=== PATIENT | male | born 1960 | race Caucasian/White ===

== ENCOUNTER 2017-10-23 06:07 | Emergency (ER) | payer MEDICAID, OTHER ==
[~2017-10-23] VITALS: Ht 182.9 cm; Wt 77.3 kg
[~2017-10-23 06:07] MED LIST: CEPH-268 PO; NO HOME MEDS
[2017-10-23] MEDS ORDERED: ketorolac trometh inj. 60 MG/2 ML VIAL IM ONE (06:45)
[2017-10-23 12:21] VITALS: BP 158/95
== END 2017-10-23 12:23 | disposition home or self-care (01) ==
LOC: ER 06:08
DX: S32.010A Wedge compression fracture of first lumbar vertebra, initial encounter for closed fracture (principal); I10 Essential (primary) hypertension; G62.9 Polyneuropathy, unspecified; F10.129 Alcohol abuse with intoxication, unspecified; Z89.512 Acquired absence of left leg below knee; Z99.3 Dependence on wheelchair; Z88.1 Allergy status to other antibiotic agents; W05.0XXA Fall from non-moving wheelchair, initial encounter; Y93.89 Activity, other specified; Y92.89 Other specified places as the place of occurrence of the external cause; Y99.8 Other external cause status
CPT/HCPCS: 72100; 72131; 99284; J1885

== ENCOUNTER 2018-06-16 18:16 | Emergency (ER) | payer MEDICAID, OTHER ==
[~2018-06-16] VITALS: Ht 182.9 cm; Wt 79.5 kg
[2018-06-16] MEDS ORDERED: normal saline 1000ML IV soln IVB ONE (19:30)
[2018-06-16 19:31] LABS: BASOPHILS # (AUTO) 0.1 X10'3 (0-0.2); BASOPHILS % (AUTO) 1.1 % (0-1); EOSINOPHILS # (AUTO) 0.1 X10'3 (0-0.9); EOSINOPHILS % (AUTO) 1.6 % (0-6); HEMATOCRIT 41.8 % (42.0-52.0); LYMPHOCYTES # (AUTO) 0.7 X10'3 (1.1-4.8); LYMPHOCYTES % (AUTO) 13.1 % (21-51); MEAN CORPUSCULAR HGB CONC 33.4 % (33.0-36.5); MEAN CORPUSCULAR VOLUME 98.8 FL (78-98); MEAN PLATELET VOLUME 6.6 FL (7.4-10.4); MONOCYTES # (AUTO) 0.8 X10'3 (0-0.9); NEUTROPHILS # (AUTO) 3.7 X10'3 (1.8-7.7); NEUTROPHILS % (AUTO) 69.2 % (42-75); PLATELET COUNT 154 X10'3 (140-440); RED BLOOD COUNT 4.23 X10'6 (4.70-6.10); WHITE BLOOD COUNT 5.4 X10'3 (4.5-11.0)
[2018-06-16 19:47] LABS: ALANINE AMINOTRANSFERASE 38 U/L (12-78); ALBUMIN 3.2 G/DL (3.4-5.0); ALBUMIN/GLOBULIN RATIO 0.8 (1.1-1.5); ALKALINE PHOSPHATASE 106 IU/L (46-116); ANION GAP 11 (8-16); ASPARTATE AMINO TRANSFERASE 52 U/L (10-37); BLOOD UREA NITROGEN 3 MG/DL (7-18); CALCIUM 8.6 MG/DL (8.5-10.1); CHLORIDE 92 MMOL/L (99-107); GLUCOSE 98 MG/DL (70-104); MAGNESIUM 1.6 MG/DL (1.5-2.4); POTASSIUM 3.5 MMOL/L (3.5-5.1); SODIUM 128 MMOL/L (135-145); TOTAL CARBON DIOXIDE 24.7 MMOL/L (24-32)
[2018-06-16 19:49] LABS: CLARITY,URINE CLOUDY (Clear); COLOR,URINE YELLOW (Yellow); GLUCOSE, URINE NEGATIVE (Neg); KETONES,URINE NEGATIVE (Neg); LEUKOCYTE ESTERASE ,URINE LARGE (Neg); NITRITES, URINE NEGATIVE (Neg); OCCULT BLOOD,URINE MODERATE (Neg); PROTEIN,URINE NEGATIVE (Neg); UROBILINOGEN,URINE 0.2 E.U/dL (0.2-1.0)
[2018-06-16 19:52] LABS: INR 1.1 INR; PARTIAL THROMBOPLASTIN TIME 30 SECONDS (22-32); PROTHROMBIN TIME 11.4 SECONDS (9.0-12.0)
[2018-06-16 19:57] LABS: UA COLLECTION TYPE CLN CATCH MIDSTREAM
[2018-06-16 19:58] LABS: BACTERIA,URINE FEW /HPF (Neg); RBC,URINE 20-50 /HPF (0-2); SQUAMOUS EPITHELIAL CELL,UR FEW /LPF (FEW); WBC CLUMPS,URINE FEW /HPF (NEGATIVE); WBC,URINE TNTC /HPF (0-4)
[2018-06-16 19:59] LABS: BUN/CREATININE RATIO 3.3 (5.4-32.0); CREATININE 0.92 MG/DL (0.60-1.10); eGFR 84 ML/MIN
[2018-06-16] MEDS ORDERED: CIPR-259 PO (21:45)
[2018-06-16] MEDS ORDERED: MYCOL30CR TP (21:45)
[2018-06-16 22:05] VITALS: BP 147/89
== END 2018-06-16 22:18 | disposition home or self-care (01) ==
LOC: ER 18:17
DX: B37.2 Candidiasis of skin and nail (principal); R21 Rash and other nonspecific skin eruption; N39.0 Urinary tract infection, site not specified; G62.9 Polyneuropathy, unspecified; I10 Essential (primary) hypertension; Z86.73 Personal history of transient ischemic attack (TIA), and cerebral infarction without residual deficits; Z98.890 Other specified postprocedural states; Z88.1 Allergy status to other antibiotic agents
CPT/HCPCS: 36415; 71045; 80053; 81001; 83735; 84145; 85025; 85610; 85730; 87040; 87088; 93005; 99285; J7030

== ENCOUNTER 2021-07-26 03:53 | Inpatient (IN) | payer MEDICAID ==
[~2021-07-26] VITALS: Ht 182.9 cm; Wt 59.7 kg
[~2021-07-26 03:53] MED LIST changes: +MYCOL30CR TP
[2021-07-26] MEDS ORDERED: normal saline 1000ml 1,000 ML IV ONE (05:35)
[2021-07-26 05:43] LABS: BASOPHILS # (AUTO) 0.1 X10'3 (0-0.2); BASOPHILS % (AUTO) 1.2 % (0-1); EOSINOPHILS # (AUTO) 0.1 X10'3 (0-0.9); EOSINOPHILS % (AUTO) 1.2 % (0-6); HEMATOCRIT 39.3 % (42.0-52.0); HEMOGLOBIN 13.5 g/dl (14.0-17.9); LYMPHOCYTES # (AUTO) 0.8 X10'3 (1.1-4.8); LYMPHOCYTES % (AUTO) 12.1 % (21-51); MEAN CORPUSCULAR HEMOGLOBIN 32.1 PG (27.0-31.0); MEAN CORPUSCULAR HGB CONC 34.4 g/dL (33.0-36.5); MEAN CORPUSCULAR VOLUME 93.4 FL (78-98); MEAN PLATELET VOLUME 7.1 FL (7.4-10.4); MONOCYTES # (AUTO) 0.6 X10'3 (0-0.9); NEUTROPHILS # (AUTO) 4.9 X10'3 (1.8-7.7); NEUTROPHILS % (AUTO) 75.5 % (42-75); PLATELET COUNT 416 X10'3 (140-440); RED CELL DISTRIBUTION WIDTH 12.9 % (11.5-14.5); WHITE BLOOD COUNT 6.4 X10'3 (4.5-11.0)
[2021-07-26] MEDS ORDERED: DOXYCYCLINE 100MG CAPSULE PO STA (05:51)
[2021-07-26] MEDS ORDERED: DOXY-1 PO (05:53)
[2021-07-26 06:02] LABS: ALANINE AMINOTRANSFERASE 25 U/L (12-78); ALBUMIN 3.5 G/DL (3.4-5.0); ALBUMIN/GLOBULIN RATIO 0.7 (1.1-1.5); ALKALINE PHOSPHATASE 188 IU/L (46-116); ANION GAP 12 (8-16); BILIRUBIN,TOTAL 0.4 MG/DL (0.1-1.0); BLOOD UREA NITROGEN 20 MG/DL (7-18); BUN/CREATININE RATIO 10.4 (5.4-32.0); CALCIUM 9.8 MG/DL (8.5-10.1); CHLORIDE 90 MMOL/L (99-107); CREATININE 1.92 MG/DL (0.60-1.10); GLUCOSE 134 MG/DL (70-104); SODIUM 121 MMOL/L (135-145); TOTAL CARBON DIOXIDE 19.2 MMOL/L (24-32); TOTAL PROTEIN 8.6 G/DL (6.4-8.2); eGFR 36 ML/MIN
[2021-07-26 06:20] LABS: ASPARTATE AMINO TRANSFERASE 43 U/L (10-37); POTASSIUM 5.3 MMOL/L (3.5-5.1)
[2021-07-26] MEDS ORDERED: LORazepam 1 MG tablet PO ONE (06:20)
[2021-07-26] MEDS ORDERED: magnesium hydroxide 30ml (MOM) UD suspension PO PRN (07:25)
[2021-07-26] MEDS: normal saline 1000ml 1,000 ML IV SCH (07:25)
[2021-07-26] MEDS ORDERED: haloperidol lactate 5mg/ml inj IM PRN (07:25)
[2021-07-26] MEDS ORDERED: haloperidol 5mg tablet PO PRN (07:25)
[2021-07-26] MEDS ORDERED: mag hydrox/Alum hydrox/simeth 30ml oral suspension PO PRN (07:25)
[2021-07-26] MEDS ORDERED: thiamine 100mg/ml 2ml inj. IV ONE ×2 (07:25→07:30)
[2021-07-26] MEDS ORDERED: dextrose 50%-water 50ml dispensing syringe IV PRN (07:25)
[2021-07-26] MEDS ORDERED: ondansetron/PF 4mg/2ml inj IV PRN (07:25)
[2021-07-26] MEDS ORDERED: acetaminophen 325mg tablet PO PRN (07:25)
[2021-07-26] MEDS ORDERED: ringers solution, lacted 1,000 ML IV ONE (07:30)
[2021-07-26] MEDS ORDERED: folic acid 1mg/0.2ml inj IV ONE (07:30)
[2021-07-26 07:54] LABS: MAGNESIUM 1.8 MG/DL (1.5-2.4)
[2021-07-26] MEDS: docusate sod 100mg capsule PO SCH ×2 (08:00→20:00)
--- NOTE | 2021-07-26 09:00 | NUR ---
NUMEROUS IV ATTEMPTS BY 3 RN'S. PICC NURSE PAGED.
[2021-07-26] MEDS: thiamine 100mg tablet PO SCH (16:40)
[2021-07-26] MEDS: folic acid 1mg tablet PO SCH (16:40)
[2021-07-26] MEDS: enoxaparin 40mg/0.4ml syringe SUBCUT SCH (16:44)
[2021-07-26] MEDS: LORazepam 2 mg/ml vial IV PRN (18:17)
[2021-07-27] MEDS: normal saline 1000ml 1,000 ML IV SCH ×4 (01:00→23:25)
--- NOTE | 2021-07-27 01:00 | NUR ---
Report received from Tisha RN in ER. Tisha could not tell me why this pt was being admitted; Pt AO to self but very confused. NA of 121. Pt has LR infusing with 10mL left; switched to NS per order. Pt in NAD with VSS. Placed pt on monitor and will CTM and reassess.
--- NOTE | 2021-07-27 02:08 | NUR ---
Report given to Edita CARRION. Pt in NAD with VSS upon transfer to floor. Pt belongings placed on bed with patient. Pt has a prosthesis with him for his leg and several patient belongings bags.
[2021-07-27 07:58] LABS: BASOPHILS # (AUTO) 0.1 X10'3 (0-0.2); EOSINOPHILS % (AUTO) 0.4 % (0-6); HEMATOCRIT 37.8 % (42.0-52.0); HEMOGLOBIN 12.9 g/dl (14.0-17.9); LYMPHOCYTES # (AUTO) 0.3 X10'3 (1.1-4.8); LYMPHOCYTES % (AUTO) 3.3 % (21-51); MEAN CORPUSCULAR HEMOGLOBIN 31.8 PG (27.0-31.0); MEAN CORPUSCULAR VOLUME 93.6 FL (78-98); MEAN PLATELET VOLUME 6.2 FL (7.4-10.4); MONOCYTES # (AUTO) 0.7 X10'3 (0-0.9); NEUTROPHILS # (AUTO) 7.1 X10'3 (1.8-7.7); NEUTROPHILS % (AUTO) 87.3 % (42-75); PLATELET COUNT 291 X10'3 (140-440); RED BLOOD COUNT 4.04 X10'6 (4.70-6.10); RED CELL DISTRIBUTION WIDTH 12.8 % (11.5-14.5); WHITE BLOOD COUNT 8.2 X10'3 (4.5-11.0)
[2021-07-27 08:06] LABS: ALBUMIN 3.2 G/DL (3.4-5.0); ANION GAP 13 (8-16); BLOOD UREA NITROGEN 20 MG/DL (7-18); BUN/CREATININE RATIO 13.8 (5.4-32.0); CALCIUM 9.7 MG/DL (8.5-10.1); CHLORIDE 96 MMOL/L (99-107); CREATININE 1.45 MG/DL (0.60-1.10); GLUCOSE 120 MG/DL (70-104); POTASSIUM 5.2 MMOL/L (3.5-5.1); SODIUM 127 MMOL/L (135-145); TOTAL CARBON DIOXIDE 17.8 MMOL/L (24-32); eGFR 49 ML/MIN
--- NOTE | 2021-07-27 08:58 | NUR ---
Patient in room ED 13. I have received report from Oriana infante and had the opportunity to ask questions and assume patient care. pt morning meds were not given in ED, will give when pt comes to the floor
[2021-07-27] MEDS: thiamine 100mg tablet PO SCH (09:46)
[2021-07-27] MEDS: folic acid 1mg tablet PO SCH (09:46)
[2021-07-27] MEDS: docusate sod 100mg capsule PO SCH ×2 (09:47→22:41)
[2021-07-27] MEDS: enoxaparin 40mg/0.4ml syringe SUBCUT SCH (09:47)
[2021-07-27 10:01] VITALS: BP 119/80
[2021-07-27 11:00] VITALS: BP 108/81
[2021-07-27] MEDS: LORazepam 2 mg/ml vial IV PRN ×2 (12:19→17:16)
[2021-07-27 15:00] VITALS: BP 107/72
[2021-07-27 18:00] VITALS: BP 128/60
--- NOTE | 2021-07-27 18:20 | NUR ---
Problems reprioritized. Patient report given, questions answered & plan of care reviewed with Alonzo infante.
[2021-07-28 02:00] VITALS: BP 109/72
[2021-07-28 06:00] VITALS: BP 116/62
--- NOTE | 2021-07-28 06:00 | NUR ---
Patient in room PCU 3015. I have received report from Alonzo Bhagat and had the opportunity to ask questions and assume patient care
[2021-07-28 07:08] LABS: HEMOGLOBIN 11.8 g/dl (14.0-17.9); LYMPHOCYTES # (AUTO) 0.4 X10'3 (1.1-4.8); LYMPHOCYTES % (AUTO) 8.4 % (21-51); MEAN CORPUSCULAR HGB CONC 34.1 g/dL (33.0-36.5); MONOCYTES # (AUTO) 0.9 X10'3 (0-0.9); WHITE BLOOD COUNT 4.2 X10'3 (4.5-11.0)
[2021-07-28 07:11] LABS: EOSINOPHILS % (AUTO) 1.1 % (0-6); HEMATOCRIT 34.5 % (42.0-52.0); MEAN CORPUSCULAR HEMOGLOBIN 32.1 PG (27.0-31.0); MEAN CORPUSCULAR VOLUME 93.9 FL (78-98); MEAN PLATELET VOLUME 6.7 FL (7.4-10.4); MONOCYTES % (AUTO) 21.1 % (2-12); NEUTROPHILS # (AUTO) 2.9 X10'3 (1.8-7.7); NEUTROPHILS % (AUTO) 68.4 % (42-75); PLATELET COUNT 243 X10'3 (140-440); RED BLOOD COUNT 3.67 X10'6 (4.70-6.10); RED CELL DISTRIBUTION WIDTH 12.8 % (11.5-14.5)
[2021-07-28 07:17] LABS: ALBUMIN 2.8 G/DL (3.4-5.0); ANION GAP 10 (8-16); BLOOD UREA NITROGEN 20 MG/DL (7-18); BUN/CREATININE RATIO 13.9 (5.4-32.0); CALCIUM 9.3 MG/DL (8.5-10.1); CHLORIDE 97 MMOL/L (99-107); CREATININE 1.44 MG/DL (0.60-1.10); GLUCOSE 110 MG/DL (70-104); SODIUM 123 MMOL/L (135-145); TOTAL CARBON DIOXIDE 15.8 MMOL/L (24-32); eGFR 50 ML/MIN
[2021-07-28] MEDS ORDERED: LORazepam 2 mg/ml vial IV PRN (07:25)
[2021-07-28 08:16] LABS: PLATELET ESTIMATE NORMAL; TOTAL CELLS COUNTED 100
[2021-07-28] MEDS: LORazepam 1 MG tablet PO PRN ×4 (08:44→23:26)
[2021-07-28] MEDS: thiamine 100mg tablet PO SCH (08:44)
[2021-07-28] MEDS: enoxaparin 40mg/0.4ml syringe SUBCUT SCH (08:45)
[2021-07-28] MEDS: docusate sod 100mg capsule PO SCH ×2 (08:45→20:21)
[2021-07-28] MEDS: folic acid 1mg tablet PO SCH (08:45)
[2021-07-28] MEDS: normal saline 1000ml 1,000 ML IV SCH (08:46)
[2021-07-28] MEDS: sodium bicarbonate (8.4%) inj. 100 MEQ in dextrose 5%-water 1,000 ML IV SCH ×3 (10:54→23:26)
[2021-07-28 11:30] VITALS: BP 104/70
--- NOTE | 2021-07-28 12:25 | NUR ---
Informed MD Manzo of Amos aarm edema, IV dc'd infiltrated and dc'd, orders recevied to check venous US
[2021-07-28 15:00] VITALS: BP 105/74
[2021-07-28 18:00] VITALS: BP 136/74
--- NOTE | 2021-07-28 19:00 | NUR ---
I have received report from MURALI Pritchett and had the opportunity to ask questions and assume patient care.
[2021-07-28 23:34] VITALS: BP 97/50
[2021-07-29 03:13] VITALS: BP 117/67
[2021-07-29] MEDS: LORazepam 1 MG tablet PO PRN (04:43)
--- NOTE | 2021-07-29 06:17 | NUR ---
Problems reprioritized. Patient report given, questions answered & plan of care reviewed with MURALI Alcazar.
[2021-07-29 07:11] VITALS: BP 92/32
--- NOTE | 2021-07-29 07:21 | NUR ---
Patient in room PCU 3017. I have received report from Juancho CARRION and had the opportunity to ask questions and assume patient care.
[2021-07-29] MEDS: thiamine 100mg tablet PO SCH (07:53)
[2021-07-29] MEDS: folic acid 1mg tablet PO SCH (07:53)
[2021-07-29] MEDS: docusate sod 100mg capsule PO SCH ×2 (07:53→20:50)
[2021-07-29] MEDS: enoxaparin 40mg/0.4ml syringe SUBCUT SCH (07:54)
[2021-07-29 12:13] LABS: BASOPHILS % (AUTO) 0.6 % (0-1); EOSINOPHILS # (AUTO) 0.1 X10'3 (0-0.9); EOSINOPHILS % (AUTO) 1.3 % (0-6); HEMATOCRIT 32.2 % (42.0-52.0); HEMOGLOBIN 10.9 g/dl (14.0-17.9); LYMPHOCYTES # (AUTO) 0.4 X10'3 (1.1-4.8); LYMPHOCYTES % (AUTO) 7.5 % (21-51); MEAN CORPUSCULAR HEMOGLOBIN 31.5 PG (27.0-31.0); MEAN CORPUSCULAR HGB CONC 33.8 g/dL (33.0-36.5); MEAN CORPUSCULAR VOLUME 93.3 FL (78-98); MEAN PLATELET VOLUME 6.3 FL (7.4-10.4); MONOCYTES # (AUTO) 0.8 X10'3 (0-0.9); MONOCYTES % (AUTO) 12.8 % (2-12); NEUTROPHILS # (AUTO) 4.6 X10'3 (1.8-7.7); NEUTROPHILS % (AUTO) 77.8 % (42-75); PLATELET COUNT 265 X10'3 (140-440); RED BLOOD COUNT 3.45 X10'6 (4.70-6.10); RED CELL DISTRIBUTION WIDTH 12.9 % (11.5-14.5); WHITE BLOOD COUNT 5.9 X10'3 (4.5-11.0)
[2021-07-29 12:28] LABS: ALBUMIN 2.4 G/DL (3.4-5.0); ANION GAP 9 (8-16); BLOOD UREA NITROGEN 16 MG/DL (7-18); BUN/CREATININE RATIO 12.8 (5.4-32.0); CALCIUM 8.2 MG/DL (8.5-10.1); CHLORIDE 96 MMOL/L (99-107); CREATININE 1.25 MG/DL (0.60-1.10); GLUCOSE 124 MG/DL (70-104); POTASSIUM 4.2 MMOL/L (3.5-5.1); SODIUM 129 MMOL/L (135-145); TOTAL CARBON DIOXIDE 23.8 MMOL/L (24-32); eGFR 58 ML/MIN
[2021-07-29 13:17] VITALS: BP 104/74
[2021-07-29] MEDS: dextrose 5%-water 1,000 ML IV SCH (14:27)
--- NOTE | 2021-07-29 18:36 | NUR ---
Problems reprioritized. Patient report given, questions answered & plan of care reviewed with Rachel CARRION.
[2021-07-29 22:00] VITALS: BP 119/72
--- NOTE | 2021-07-30 06:33 | NUR ---
Patient in room PCU 3017. I have received report from Ayesha CARRION and had the opportunity to ask questions and assume patient care.
--- NOTE | 2021-07-30 07:09 | NUR ---
Patient in room PCU 3017. I have received report from Jenny CARRION and had the opportunity to ask questions and assume patient care.
[2021-07-30 07:17] VITALS: BP 102/68
[2021-07-30] MEDS ORDERED: LORazepam 2 mg/ml vial IV PRN (07:25)
[2021-07-30] MEDS ORDERED: LORazepam 1 MG tablet PO PRN (07:25)
[2021-07-30 07:29] LABS: BASOPHILS % (AUTO) 0.5 % (0-1); EOSINOPHILS # (AUTO) 0.1 X10'3 (0-0.9); EOSINOPHILS % (AUTO) 1.6 % (0-6); HEMATOCRIT 29.4 % (42.0-52.0); HEMOGLOBIN 10.4 g/dl (14.0-17.9); LYMPHOCYTES # (AUTO) 0.4 X10'3 (1.1-4.8); LYMPHOCYTES % (AUTO) 7.1 % (21-51); MEAN CORPUSCULAR HEMOGLOBIN 32.1 PG (27.0-31.0); MEAN CORPUSCULAR HGB CONC 35.5 g/dL (33.0-36.5); MEAN CORPUSCULAR VOLUME 90.5 FL (78-98); MEAN PLATELET VOLUME 6.6 FL (7.4-10.4); MONOCYTES # (AUTO) 0.8 X10'3 (0-0.9); NEUTROPHILS # (AUTO) 4.9 X10'3 (1.8-7.7); NEUTROPHILS % (AUTO) 77.8 % (42-75); PLATELET COUNT 241 X10'3 (140-440); RED BLOOD COUNT 3.25 X10'6 (4.70-6.10); RED CELL DISTRIBUTION WIDTH 12.6 % (11.5-14.5); WHITE BLOOD COUNT 6.3 X10'3 (4.5-11.0)
[2021-07-30 07:38] LABS: ALBUMIN 2.2 G/DL (3.4-5.0); ANION GAP 9 (8-16); BLOOD UREA NITROGEN 12 MG/DL (7-18); BUN/CREATININE RATIO 11.8 (5.4-32.0); CALCIUM 8.1 MG/DL (8.5-10.1); CHLORIDE 98 MMOL/L (99-107); CREATININE 1.02 MG/DL (0.60-1.10); GLUCOSE 108 MG/DL (70-104); POTASSIUM 3.3 MMOL/L (3.5-5.1); SODIUM 129 MMOL/L (135-145); TOTAL CARBON DIOXIDE 22.1 MMOL/L (24-32); eGFR 74 ML/MIN
[2021-07-30] MEDS: thiamine 100mg tablet PO SCH (08:17)
[2021-07-30] MEDS: enoxaparin 40mg/0.4ml syringe SUBCUT SCH (08:17)
[2021-07-30] MEDS: docusate sod 100mg capsule PO SCH ×2 (08:17→22:32)
[2021-07-30] MEDS: folic acid 1mg tablet PO SCH (08:18)
[2021-07-30] MEDS ORDERED: magnesium 4gm in 100ml NS 100 ML IV PRN (08:55)
[2021-07-30] MEDS ORDERED: magnesium Cl slow-release 64mg tablet PO PRN (08:55)
[2021-07-30] MEDS ORDERED: potassium Cl 40MEQ/1/2NS 520ml 520 ML IV PRN (08:55)
[2021-07-30] MEDS ORDERED: potassium Cl 20 mEq SR tablet PO PRN (08:55)
[2021-07-30] MEDS: potassium Cl 20 mEq SR tablet PO PRN ×2 (09:48→14:20)
[2021-07-30 11:00] VITALS: BP 101/70
[2021-07-30 15:00] VITALS: BP 115/82
[2021-07-30] MEDS: dextrose 5%-water 1,000 ML IV SCH ×3 (15:27→19:30)
--- NOTE | 2021-07-30 15:31 | NUR ---
MESSAGE: Pt D[place] Carney [id number] is requesting throat lozengesPls advise, Thanks, [id number]
[2021-07-30] MEDS ORDERED: benzocaine/menthol oral lozeng 1 EACH BOX MM PRN (15:35)
--- NOTE | 2021-07-30 18:55 | NUR ---
Problems reprioritized. Patient report given to Cris CARRION , questions answered & plan of care reviewed with .
[2021-07-30] MEDS: K and/or MAG REPLACEMENT MC SCH (20:00)
[2021-07-31] MEDS: dextrose 5%-water 1,000 ML IV SCH (05:30)
--- NOTE | 2021-07-31 06:30 | NUR ---
Patient alert and oriented times three. IVF in progress. Call light with reach. Safety precaution in place and maintained. Denies any pain/acute distress.
[2021-07-31 06:46] LABS: BASOPHILS % (AUTO) 0.8 % (0-1); EOSINOPHILS # (AUTO) 0.1 X10'3 (0-0.9); EOSINOPHILS % (AUTO) 1.6 % (0-6); HEMATOCRIT 28.2 % (42.0-52.0); HEMOGLOBIN 9.9 g/dl (14.0-17.9); LYMPHOCYTES # (AUTO) 0.7 X10'3 (1.1-4.8); LYMPHOCYTES % (AUTO) 11.3 % (21-51); MEAN CORPUSCULAR HEMOGLOBIN 32.1 PG (27.0-31.0); MEAN CORPUSCULAR HGB CONC 35.2 g/dL (33.0-36.5); MEAN CORPUSCULAR VOLUME 91.2 FL (78-98); MEAN PLATELET VOLUME 6.5 FL (7.4-10.4); MONOCYTES # (AUTO) 0.9 X10'3 (0-0.9); MONOCYTES % (AUTO) 15.1 % (2-12); NEUTROPHILS # (AUTO) 4.1 X10'3 (1.8-7.7); NEUTROPHILS % (AUTO) 71.2 % (42-75); PLATELET COUNT 243 X10'3 (140-440); RED BLOOD COUNT 3.09 X10'6 (4.70-6.10); RED CELL DISTRIBUTION WIDTH 13.1 % (11.5-14.5); WHITE BLOOD COUNT 5.8 X10'3 (4.5-11.0)
[2021-07-31 07:00] VITALS: BP 87/63
--- NOTE | 2021-07-31 07:06 | NUR ---
Patient in room PCU 3017. I have received report from Cris CARRION and had the opportunity to ask questions and assume patient care. Pt alert to voice, supine in bed, watching tv. no s/sx acute distress. safety measures in place.
[2021-07-31 07:16] LABS: ANION GAP 8 (8-16); BLOOD UREA NITROGEN 9 MG/DL (7-18); BUN/CREATININE RATIO 9.3 (5.4-32.0); CALCIUM 8.1 MG/DL (8.5-10.1); CHLORIDE 99 MMOL/L (99-107); CREATININE 0.97 MG/DL (0.60-1.10); GLUCOSE 119 MG/DL (70-104); POTASSIUM 3.5 MMOL/L (3.5-5.1); SODIUM 129 MMOL/L (135-145); TOTAL CARBON DIOXIDE 22.4 MMOL/L (24-32); eGFR 78 ML/MIN
--- NOTE | 2021-07-31 07:18 | NUR ---
Problems reprioritized. Patient report given, questions answered & plan of care reviewed with in nurse.
[2021-07-31] MEDS: K and/or MAG REPLACEMENT MC SCH ×2 (08:00→20:00)
[2021-07-31] MEDS: docusate sod 100mg capsule PO SCH ×2 (09:29→20:00)
[2021-07-31] MEDS: folic acid 1mg tablet PO SCH (09:30)
[2021-07-31] MEDS: thiamine 100mg tablet PO SCH (09:30)
[2021-07-31] MEDS: enoxaparin 40mg/0.4ml syringe SUBCUT SCH (09:31)
[2021-07-31 11:00] VITALS: BP 103/69
--- NOTE | 2021-07-31 11:46 | NUR ---
Initial: Pt admit DX hyponatremia, etoh abuse, [place], [place], and metabolic acidosis currently improving per DO note. Serum Na 129 up from 121 on admit however has remained at 129 past 3 days receiving D5 at 100ml/hr (408kcals/day) since 07/29 changed from prior NS per EMR. RD d/w RN who reports D5 stopped this AM. Pt PO mostly ~50% avg meals past 3 days down from 75% on admit partially meeting needs w/ initial tremors improving per EMR. RN reports pt would likely benefit from adaptive wear w/ meals; dietary notified. On thiamin and folic acid for etoh. Noted LBM 07/25 receiving routine colace; RD d/w RN regarding additional bowel care if DO agreeable. Constipation likely impacting PO trends though RD recommends Ensure High protein BIDBD to assist in optimizing nutrition intake; MD notified. Current BMI 17.9 however initial wt 81kg and new wt 59.7kg both not scaled; estimated needs using IBW until wt accuracy ensured. Will continue to monitor for PO trends and additional protein/kcal needs this admit. Rec: 1. continue regular diet; encourage PO; adaptive wear w/ meals given tremors 2. Ensure High Protein BIDBD; pending MD verification in EMR 3. routine bowel care; 6 days constipation 4. thiamin, folic acid for etoh per DO 5. updated scaled wt this admit and weekly subsequent wts; current wts varied 59.7-81kg Addendum: 07/31/21 at [address] Amended: Links added.
[2021-07-31 15:00] VITALS: BP 101/67
[2021-07-31] MEDS: lactose-reduced food (Ensure High Protein) 237ml bottle PO SCH (17:30)
--- NOTE | 2021-07-31 19:01 | NUR ---
Problems reprioritized. Patient report given, questions answered & plan of care reviewed with Cris CARRION. Student documentation: I have reviewed and agree with all interventions, assessments performed and documented by Jasmeet Student RN . Student Medication Administration: For this medication-pass time frame, all medication were reviewed, dispensed, administered and documented per hospital policy by Jasmeet Harris RN .
[2021-07-31] MEDS ORDERED: pneumococcal 23-VAL P-sac vacc 25 mcg/0.5ml vial IMVAC ONE (20:00)
[2021-08-01 07:00] VITALS: BP 101/66
[2021-08-01] MEDS: lactose-reduced food (Ensure High Protein) 237ml bottle PO SCH ×2 (07:30→17:30)
--- NOTE | 2021-08-01 07:34 | NUR ---
Patient in room PCU 3017. I have received report from Cris CARRION and had the opportunity to ask questions and assume patient care.
[2021-08-01] MEDS: K and/or MAG REPLACEMENT MC SCH ×2 (08:00→20:00)
[2021-08-01] MEDS: folic acid 1mg tablet PO SCH (08:51)
[2021-08-01] MEDS: thiamine 100mg tablet PO SCH (08:52)
[2021-08-01] MEDS: enoxaparin 40mg/0.4ml syringe SUBCUT SCH (08:52)
[2021-08-01] MEDS: docusate sod 100mg capsule PO SCH ×2 (08:52→20:00)
[2021-08-01 09:54] LABS: BASOPHILS % (AUTO) 0.8 % (0-1); EOSINOPHILS # (AUTO) 0.1 X10'3 (0-0.9); EOSINOPHILS % (AUTO) 1.7 % (0-6); HEMATOCRIT 29.6 % (42.0-52.0); LYMPHOCYTES # (AUTO) 0.6 X10'3 (1.1-4.8); LYMPHOCYTES % (AUTO) 10.2 % (21-51); MEAN CORPUSCULAR HEMOGLOBIN 31.5 PG (27.0-31.0); MEAN CORPUSCULAR HGB CONC 33.7 g/dL (33.0-36.5); MEAN CORPUSCULAR VOLUME 93.4 FL (78-98); MEAN PLATELET VOLUME 6.3 FL (7.4-10.4); MONOCYTES # (AUTO) 0.7 X10'3 (0-0.9); MONOCYTES % (AUTO) 12.3 % (2-12); NEUTROPHILS # (AUTO) 4.1 X10'3 (1.8-7.7); PLATELET COUNT 246 X10'3 (140-440); RED BLOOD COUNT 3.17 X10'6 (4.70-6.10); RED CELL DISTRIBUTION WIDTH 12.9 % (11.5-14.5); WHITE BLOOD COUNT 5.5 X10'3 (4.5-11.0)
[2021-08-01 10:06] LABS: ANION GAP 9 (8-16); BLOOD UREA NITROGEN 8 MG/DL (7-18); BUN/CREATININE RATIO 8.2 (5.4-32.0); CALCIUM 8.1 MG/DL (8.5-10.1); CHLORIDE 100 MMOL/L (99-107); CREATININE 0.97 MG/DL (0.60-1.10); GLUCOSE 139 MG/DL (70-104); POTASSIUM 3.5 MMOL/L (3.5-5.1); SODIUM 135 MMOL/L (135-145); TOTAL CARBON DIOXIDE 25.6 MMOL/L (24-32); eGFR 78 ML/MIN
[2021-08-01 11:00] VITALS: BP 99/73
[2021-08-01] MEDS ORDERED: pneumococcal 23-VAL P-sac vacc 25 mcg/0.5ml vial IMVAC ONE (14:45)
[2021-08-01 15:00] VITALS: BP 130/83
--- NOTE | 2021-08-01 16:29 | NUR ---
Dr. Rodrigues aware patient has no IV access and is ok with that.
--- NOTE | 2021-08-01 17:41 | NUR ---
Patient refusing PNA vaccine stating he wants think about it more.
--- NOTE | 2021-08-01 17:44 | NUR ---
[place] documentation: I have reviewed and agree with all interventions, assessments performed and documented by Lizzy Butt Medication Administration: For this medication-pass time frame, all medication were reviewed, dispensed, administered and documented per hospital policy by Lizzy CARRION. .
[2021-08-01 18:00] VITALS: BP 104/40
--- NOTE | 2021-08-01 18:05 | NUR ---
Patient in room PCU 3017. I have received report from Bess CARRION and had the opportunity to ask questions and assume patient care.
--- NOTE | 2021-08-01 18:14 | NUR ---
Problems reprioritized. Patient report given, questions answered & plan of care reviewed with Aurelia CARRION.
[2021-08-01 22:00] VITALS: BP 118/54
[2021-08-02 02:00] VITALS: BP 109/55
--- NOTE | 2021-08-02 06:09 | NUR ---
Problems reprioritized. Patient report given, questions answered & plan of care reviewed with Khushi CARRION.
--- NOTE | 2021-08-02 06:42 | NUR ---
Patient in room PCU 3017. I have received report from Aurelia CARRION and had the opportunity to ask questions and assume patient care. Patient resting in bed in no acute distress.
[2021-08-02 07:00] VITALS: BP 103/66
[2021-08-02] MEDS: lactose-reduced food (Ensure High Protein) 237ml bottle PO SCH ×2 (07:30→17:47)
[2021-08-02] MEDS: K and/or MAG REPLACEMENT MC SCH ×3 (08:00→20:06)
[2021-08-02] MEDS: docusate sod 100mg capsule PO SCH ×3 (08:00→20:03)
[2021-08-02] MEDS: thiamine 100mg tablet PO SCH (09:07)
[2021-08-02] MEDS: folic acid 1mg tablet PO SCH (09:07)
[2021-08-02] MEDS: enoxaparin 40mg/0.4ml syringe SUBCUT SCH (09:07)
[2021-08-02 11:00] VITALS: BP 109/75
--- NOTE | 2021-08-02 14:04 | NUR ---
Malnutrition screen: Per [facility]ST pt normally consumes 24-30 beers per day. Pt confirms that he heavily consumes alcohol and that he has not been eating well d/t drinking. Pt states he has lost wt in the last ~6 weeks but is unsure of how much. Pt is able to eat well here though, mostly 100% of meals on Regular diet. Pt observed at bedside w/ visible muscle and fat wasting on temporalis, clavicle, tricep, quadricep, and calf regions. At this time, pt meets minimum criteria for malnutrition. Will continue to monitor. Rec: 1. continue regular diet; encourage PO; adaptive wear w/ meals given tremors 2. Ensure High Protein BIDBD; pt may not need if PO continues to be 100% 3. routine bowel care 4. thiamin, folic acid for etoh per DO 5. Weekly wts Addendum: 08/02/21 at [address] Amended: Links added.
[2021-08-02 15:00] VITALS: BP 113/79
--- NOTE | 2021-08-02 17:46 | NUR ---
[place] documentation: I have reviewed and agree with all interventions, assessments performed and documented by Bess Butt Medication Administration: For this medication-pass time frame, all medication were reviewed, dispensed, administered and documented per hospital policy by Bess CARIRON. .
--- NOTE | 2021-08-02 18:15 | NUR ---
Problems reprioritized. Patient report given, questions answered & plan of care reviewed with Laura CARRION.
--- NOTE | 2021-08-02 18:30 | NUR ---
Patient in room PCU 3017. I have received report from Khushi CARRION and had the opportunity to ask questions and assume patient care.
[2021-08-02] MEDS ORDERED: zolpidem 5mg tablet PO PRN (19:05)
[2021-08-02 20:00] VITALS: BP 125/88
[2021-08-02 22:00] VITALS: BP 108/65
--- NOTE | 2021-08-02 23:28 | NUR ---
pt refused colace.
[2021-08-03 02:00] VITALS: BP 99/79
--- NOTE | 2021-08-03 06:07 | NUR ---
Problems reprioritized. Patient report given, questions answered & plan of care reviewed with Khushi CARRION.
--- NOTE | 2021-08-03 06:10 | NUR ---
Problems reprioritized. Patient report given, with Khushi CARRION questions answered & plan of care reviewed with .
--- NOTE | 2021-08-03 06:17 | NUR ---
Patient in room U 3017. I have received report from Laura CARRION and had the opportunity to ask questions and assume patient care. Patient resting in bed in no acute distress.
[2021-08-03 07:00] VITALS: BP 99/81
[2021-08-03] MEDS: lactose-reduced food (Ensure High Protein) 237ml bottle PO SCH (07:30)
[2021-08-03] MEDS: docusate sod 100mg capsule PO SCH (08:00)
[2021-08-03] MEDS: folic acid 1mg tablet PO SCH (09:02)
[2021-08-03] MEDS: thiamine 100mg tablet PO SCH (09:02)
[2021-08-03] MEDS: enoxaparin 40mg/0.4ml syringe SUBCUT SCH (09:03)
[2021-08-03 09:11] LABS: BASOPHILS # (AUTO) 0.1 X10'3 (0-0.2); EOSINOPHILS # (AUTO) 0.1 X10'3 (0-0.9); EOSINOPHILS % (AUTO) 1.4 % (0-6); HEMATOCRIT 30.1 % (42.0-52.0); HEMOGLOBIN 10.3 g/dl (14.0-17.9); LYMPHOCYTES # (AUTO) 0.5 X10'3 (1.1-4.8); LYMPHOCYTES % (AUTO) 10.7 % (21-51); MEAN CORPUSCULAR HEMOGLOBIN 31.7 PG (27.0-31.0); MEAN CORPUSCULAR HGB CONC 34.3 g/dL (33.0-36.5); MEAN CORPUSCULAR VOLUME 92.3 FL (78-98); MEAN PLATELET VOLUME 6.5 FL (7.4-10.4); MONOCYTES # (AUTO) 0.6 X10'3 (0-0.9); MONOCYTES % (AUTO) 10.9 % (2-12); NEUTROPHILS # (AUTO) 3.9 X10'3 (1.8-7.7); PLATELET COUNT 292 X10'3 (140-440); RED BLOOD COUNT 3.26 X10'6 (4.70-6.10); RED CELL DISTRIBUTION WIDTH 12.7 % (11.5-14.5); WHITE BLOOD COUNT 5.1 X10'3 (4.5-11.0)
[2021-08-03 09:19] LABS: ALBUMIN 2.3 G/DL (3.4-5.0); ANION GAP 7 (8-16); BLOOD UREA NITROGEN 8 MG/DL (7-18); BUN/CREATININE RATIO 6.8 (5.4-32.0); CALCIUM 8.5 MG/DL (8.5-10.1); CHLORIDE 100 MMOL/L (99-107); CREATININE 1.17 MG/DL (0.60-1.10); GLUCOSE 143 MG/DL (70-104); POTASSIUM 3.1 MMOL/L (3.5-5.1); SODIUM 135 MMOL/L (135-145); TOTAL CARBON DIOXIDE 27.6 MMOL/L (24-32); eGFR 63 ML/MIN
[2021-08-03] MEDS ORDERED: THIA100T70 PO (10:29)
[2021-08-03] MEDS ORDERED: FOLI0.4T6 PO (10:29)
[2021-08-03 11:00] VITALS: BP 121/71
[2021-08-03 15:00] VITALS: BP 105/78
--- NOTE | 2021-08-03 16:23 | NUR ---
Patient is DC to home. RX were called into [facility]. Pt did not have PIV. Both old and new prothesis went with the patient . DC instructions and warning s/s were reviewed with the patient and he verbalized understanding. He was picked up by a cab arranged by case management.
== END 2021-08-03 16:18 | disposition home or self-care (01) | DRG 422 ==
LOC: ER 03:55 → ED HOLD 07:28 → PCU 3S 07-27 09:20
PROVIDERS: ADMIT Family Medicine; ATTEND Family Medicine
PROC: 3E0234Z Introduction of Serum, Toxoid and Vaccine into Muscle, Percutaneous Approach (ICD-10-PCS; principal; 2021-08-01)
DX: E86.0 Dehydration (principal); N17.0 Acute kidney failure with tubular necrosis; I21.A1 Myocardial infarction type 2; E46 Unspecified protein-calorie malnutrition; E87.2 Acidosis; E87.1 Hypo-osmolality and hyponatremia; E87.5 Hyperkalemia; F10.239 Alcohol dependence with withdrawal, unspecified; I10 Essential (primary) hypertension; Z60.2 Problems related to living alone; Z20.822 Contact with and (suspected) exposure to COVID-19; G62.9 Polyneuropathy, unspecified; R19.7 Diarrhea, unspecified; Z89.512 Acquired absence of left leg below knee; Z23 Encounter for immunization; Z88.1 Allergy status to other antibiotic agents; Z82.3 Family history of stroke; Z68.1 Body mass index [BMI] 19.9 or less, adult; Z71.41 Alcohol abuse counseling and surveillance of alcoholic
CPT/HCPCS: 36415; 71045; 80048; 80053; 83735; 83880; 84484; 85007; 85025; 87081; 87635; 90732; 93005; 93308; 93971; 97110; 97116; 97161; 97530; 97535; 99285; C9803; G0378; J1650; J2060; J7030; J7070; J7120